=== PATIENT | male | born 1975 | race Caucasian/White ===

== ENCOUNTER 2019-06-15 16:08 | Emergency (ER) | payer OTHER ==
[~2019-06-15] VITALS: Ht 167.6 cm; Wt 133.8 kg
[~2019-06-15 16:08] MED LIST: [UNRECOGNIZED DRUG - REMARK]
[2019-06-15] MEDS ORDERED: VARSARTAN (18:04)
[2019-06-15] MEDS ORDERED: [UNRECOGNIZED DRUG - OTHER] (18:05)
[2019-06-15] MEDS ORDERED: KETO10TA2 PO (22:08)
== END 2019-06-15 22:21 | disposition home or self-care (01) ==
LOC: ER 16:08
DX: M79.602 Pain in left arm (principal)

== ENCOUNTER 2021-08-29 09:33 | Emergency (ER) | payer OTHER ==
[~2021-08-29] VITALS: Ht 167.6 cm; Wt 129.3 kg
[~2021-08-29 09:33] MED LIST changes: +KETO10TA2 PO; +VARSARTAN; +[UNRECOGNIZED DRUG - OTHER]
[2021-08-29] MEDS ORDERED: ORPHENADRINE C100 MG PO (11:52)
[2021-08-29] MEDS ORDERED: DICLOFENAC POTA50 MG PO (11:52)
== END 2021-08-29 12:01 | disposition home or self-care (01) ==
LOC: ER 09:33
DX: S83.8X2A Sprain of other specified parts of left knee, initial encounter (principal); W01.0XXA Fall on same level from slipping, tripping and stumbling without subsequent striking against object, initial encounter; Y93.01 Activity, walking, marching and hiking; Y92.89 Other specified places as the place of occurrence of the external cause; Y99.8 Other external cause status

== ENCOUNTER 2021-10-06 09:44 | Outpatient (CLI) | payer OTHER ==
[~2021-10-06 09:44] MED LIST changes: +DICLOFENAC POTA50 MG PO; +ORPHENADRINE C100 MG PO
== END 2021-10-06 09:45 | disposition home or self-care (01) ==
LOC: MRI 09:44
PROVIDERS: ATTEND Orthopaedic Surgery
DX: M25.561 Pain in right knee (principal); M25.562 Pain in left knee; S83.207A Unspecified tear of unspecified meniscus, current injury, left knee, initial encounter
CPT/HCPCS: 73718

== ENCOUNTER 2021-11-11 10:05 | Outpatient (CLI) | payer OTHER | END 2021-11-11 10:11 | disposition home or self-care (01) | LOC: RAD 10:05 | PROVIDERS: ATTEND Orthopaedic Surgery | DX: R07.9 Chest pain, unspecified (principal) ==

== ENCOUNTER 2021-11-29 06:44 | Inpatient (IN) | payer OTHER ==
[~2021-11-29] VITALS: Ht 167.6 cm; Wt 136.1 kg
== END 2021-12-11 19:00 | disposition home or self-care (01) | DRG 392 ==
LOC: ER 06:44 → MEDI 17:18 → MEDJ 12-01 16:39
PROVIDERS: ADMIT Specialist; ATTEND Specialist
PROC: BW21ZZZ Computerized Tomography (CT Scan) of Abdomen and Pelvis (ICD-10-PCS; principal; 2021-11-29)
PROC: 02HV33Z Insertion of Infusion Device into Superior Vena Cava, Percutaneous Approach (ICD-10-PCS; 2021-11-30)
PROC: BW2110Z Computerized Tomography (CT Scan) of Abdomen and Pelvis using Low Osmolar Contrast, Unenhanced and Enhanced (ICD-10-PCS; 2021-12-05)
DX: K57.20 Diverticulitis of large intestine with perforation and abscess without bleeding (principal); I11.9 Hypertensive heart disease without heart failure; K76.0 Fatty (change of) liver, not elsewhere classified; R10.32 Left lower quadrant pain; K59.09 Other constipation; E66.01 Morbid (severe) obesity due to excess calories; E88.81 Metabolic syndrome and other insulin resistance; Z20.822 Contact with and (suspected) exposure to COVID-19

== ENCOUNTER 2022-12-06 10:25 | Outpatient (CLI) | payer OTHER | END 2022-12-06 10:36 | disposition home or self-care (01) | LOC: SONOGRAMA 10:25 | PROVIDERS: ATTEND Specialist | DX: I11.9 Hypertensive heart disease without heart failure (principal); K75.81 Nonalcoholic steatohepatitis (NASH) ==